=== PATIENT | female | born 1945 | race African-American/Black ===

== ENCOUNTER → 2016-10-01 | Day surgery (SDC) | payer OTHER ==
--- NOTE | 2016-10-02 16:06 | PATH ---
Surgical Pathology Report Patient Name: ROSA MERCADO [facility]. Rec. #: [id number] /Age/Gender: 1945 (Age: 71) / F Account: [id number] Location: [facility] Taken: 10/01/2016 Received: 10/01/2016 Reported: 10/02/2016 Physicians: Nighat Pereira M.D. Specimen(s) Received A: LEFT BREAST SPECIMEN WITH CALCIFICATIONS B: LEFT BREAST SPECIMEN WITHOUT CALCIFICATIONS Clinical History Nonpalpable lesion, Mammographic findings: Suspicious microcalcification Final Diagnosis A. 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 B. BREAST, LEFT, WITHOUT CALCIFICATIONS, STEREOTACTIC BIOPSY: BENIGN BREAST TISSUE WITH SCANT FRAGMENT OF FIBROADENOMA. Electronically Signed Lynda Oconnell M.D. Gross Description A. Received in formalin labeled "left breast with calcifications," are two grover-yellow, cylindrical portions of fibroadipose tissue averaging 2.0 cm in length and 0.2 cm in diameter. The specimens are submitted in toto in one cassette. B. Received in formalin labeled "left breast without calcifications," is a 2.2 x 2.2 x 0.3 cm aggregate of multiple grover-yellow irregular to cylindrical portions of fibroadipose tissue. The specimen is submitted in toto in one cassette. Time to formalin fixation: Approximately 5 minutes Total formalin fixation time: Approximately 6 hours /10/01/2016
== END | disposition home or self-care (01) ==
LOC: FMAMMOTONE 11:22
PROVIDERS: ATTEND Internal Medicine
PROC: 0HBU3ZX Excision of Left Breast, Percutaneous Approach, Diagnostic (ICD-10-PCS; principal; 2016-10-01)
DX: D24.2 Benign neoplasm of left breast (principal); R92.1 Mammographic calcification found on diagnostic imaging of breast; N64.89 Other specified disorders of breast
CPT/HCPCS: 19081; 87899; 88305-TC; A4648